=== PATIENT | female | born 1955 | race Caucasian/White ===

== ENCOUNTER → 2019-12-21 | Outpatient (CLI) | payer MEDICARE, OTHER ==
--- NOTE | 2019-12-22 11:38 | CT ---
Procedure: CT LUNG SCREENING Exam Date: December 21, 2019. Ordering Provider: LEIGHA ASH Clinical Indication: PERSONAL HISTORY OF NICOTINE DEPENDENCE . Smoking cessation x3.5 years. 45-67.5 pack years. This patient meets eligibility criteria for low-dose CT lung cancer screening. Comparison: None. Technique: Using a multislice scanner, sequential helical axial imaging was obtained in the thorax, 2.5 mm thickness, 2.5 mm separation, from the level of the thoracic inlet through the lung bases without IV contrast. A low dose protocol was utilized for BMI less than 30: BMI: 29.7. CTDI: 1.76 mGy. 120. kVp. 45 mA. DLP 61 mGy-cm. 2D sagittal and coronal reconstructed images, 6.0 mm thickness, were obtained. This exam was performed according to our departmental dose optimization program which includes use of automated exposure control, adjustment of the mA and/or kV according to patient size and/or use of iterative reconstruction technique. Nodule measurements under 10 mm are given as mean value of 3 axes diameters. FINDINGS: Lungs and large airways: Bilateral multiple blebs in the parenchyma in a centrilobular distribution. 7.5 mm groundglass nodule in the lateral base of the right upper lobe on series, 2, image 52. 6.1 mm subpleural groundglass nodule medial posterior recess of the left lower lobe on image 96. Bilateral subpleural small nodules mainly in the upper lobes 2 to 3 mm in diameter. No abnormal nodules and no masses. No focal infiltrates. Pleura and space: Bilateral thickening predominantly in the apices. Otherwise negative. Mediastinum and woody: evaluation limited by low dose technique and lack of IV contrast. Small nodes but no dominant soft tissue mass. Heart and great vessels: Multiple other scattered calcifications in the coronary arteries. Also several brachiocephalic vessels, aortic arch, descending thoracic aorta. Chest wall, lower neck, axillae: Evaluation also limited by same factors as described above. Unremarkable. Upper abdomen: Evaluation limited by low-dose technique. No free air or free fluid. Surgical clips in the gallbladder fossa. Osseous structures: Evaluation limited by low dose MIP technique. Minimal glenohumeral joint arthrosis bilaterally. No lytic or blastic lesions. IMPRESSION: No abnormal nodules and no masses. Emphysematous changes are centrilobular, and more prevalent in the upper lobes subclinical groundglass nodules.. [facility] Best Practice Recommendations: please see below for Lung RADS category and FOLLOW-UP.* *Lung RADS category CATEGORY 2- Nodules with a very low likelihood (less than 1%) of becoming a clinically active cancer due to size or lack of growth. Nodules: Perifissural nodule(s) < 10 mm. (526mm3). Solid or part solid nodule(s) less than 6mm (113.1 mm3), new solid nodule less than 4mm (33.5 mm3). Ground glass nodule(s) less than 30mm (40129.2 mm3) or unchanged or slow growing ground glass nodule 30mm or greater. Cat 3 or 4 nodule unchanged for 3 or more months. FOLLOW-UP: Continue annual screening with a Low Dose Chest CT in 12 months for re-evaluation. Electronically signed by: José Manuel Floyd MD 12/22/2019 11:36 AM CDT
--- NOTE | 2019-12-22 14:48 | MAM ---
EXAM DESCRIPTION: 3D Screening BILATERAL : Digital Mammography. CLINICAL HISTORY: 64 years Female ANNUAL SCREENING . No complaints. No personal or family history of breast cancer. Menarche age 8. Childbirth age 17. Partial hysterectomy age 24. No HRT.. Lifetime risk of developing breast cancer (Tyrer-Cuzick model)(%): 5.0. COMPARISON: Baseline study at this facility. No prior reports available. TECHNIQUE: Bilateral CC and MLO projection full-field images, digital tomosynthesis mammographic technique. Bilateral digital 2-D full-field MLO images. CAD available for 2-D images. FINDINGS: The breast parenchymal density pattern is: Heterogeneously dense breast tissue, which may obscure small masses. No skin thickening or nipple retraction. Bilateral coarse calcifications. Bilateral solitary microcalcifications. No focal, stellate mass or density, focal asymmetry , and no suspicious microcalcifications . IMPRESSION: Benign exam. BIRAD CATEGORY: 2 BENIGN FINDINGS. RECOMMENDATIONS: FOLLOW UP: Routine digital bilateral mammographic screening, one year interval from December 2019. Written communication explaining the IMPRESSION and follow-up, will be mailed to the patient and referring health care provider. According to the [employer], yearly mammograms are recommended starting at age 40 and continuing as long as a woman is in good health. Any breast change noted on a breast self-exam should be reported promptly to the patient's healthcare provider. Breast MRI is recommended for women with an approximately 20-25% or greater lifetime risk of breast cancer, including women with a strong family history of breast or ovarian cancer and women who have been treated for Hodgkin's disease. A negative mammographic report should not delay tissue diagnosis in patients with significant clinical history or physical findings. Extremely dense breast tissue limits the sensitivity of digital mammography. Electronically signed by: José Manuel Floyd MD 12/22/2019 2:47 PM CDT
== END ==
LOC: MAMMO 15:24
PROVIDERS: ATTEND Emergency Medicine
DX: Z12.31 Encounter for screening mammogram for malignant neoplasm of breast (principal); Z87.891 Personal history of nicotine dependence; R91.8 Other nonspecific abnormal finding of lung field; J43.9 Emphysema, unspecified
CPT/HCPCS: 77063; 77067; G0297